=== PATIENT | female | born 1940 | race Caucasian/White ===

== ENCOUNTER 2019-07-16 21:16 | Inpatient (IN) | payer OTHER ==
[~2019-07-16] VITALS: Ht 162.6 cm; Wt 84.1 kg
[2019-07-16 21:20] VITALS: BP 131/74
[2019-07-16 22:00] LABS: HEMATOCRIT 35.8 % (37.0-47.0); HEMOGLOBIN 11.8 gm/dL (12.0-15.0); MCH 27.5 pg (26.0-34.0); MCV 83.4 fL (80.0-100.0); PLATELET COUNT 348 thou/uL (150-400); RBC 4.29 mil/uL (4.20-5.00); RDW 15.8 % (10.5-14.5); WBC 10.6 thou/uL (4.0-11.0)
[2019-07-16 22:06] LABS: ANION GAP 4 mmol/L (7-16); BUN 15 mg/dL (7-18); CALCIUM 8.8 mg/dL (8.5-10.1); CHLORIDE 96 mmol/L (98-107); CO2 31 mmol/L (21-32); CREATININE 0.8 mg/dL (0.6-1.0); GLUCOSE 143 mg/dL (74-106); POTASSIUM 4.1 mmol/L (3.5-5.1); SODIUM 131 mmol/L (136-145)
[2019-07-16 22:15] LABS: TROPONIN-I <0.06 ng/mL (<0.06)
[2019-07-16 22:36] LABS: ABSOLUTE NEUTROPHILS 7.8 thou/uL (1.4-8.2)
[2019-07-16 22:37] LABS: PLATELET ESTIMATE NORMAL
[2019-07-16] MEDS ORDERED: DONEPEZIL HCL 55 M1 PO (23:35)
[2019-07-16] MEDS ORDERED: ALBUTEROL2.5 MG/3 M INH (23:35)
[2019-07-16] MEDS ORDERED: CARBAMAZEPINE100 M3 PO (23:36)
[2019-07-16] MEDS ORDERED: BUPROPION HCL150 M1 PO (23:36)
[2019-07-16] MEDS ORDERED: LEXAPRO20 MG PO (23:37)
[2019-07-16] MEDS ORDERED: FEOSOL325 M1 PO (23:37)
[2019-07-16] MEDS ORDERED: DULCOLAX STOOL100 M1 PO (23:37)
[2019-07-16] MEDS ORDERED: GVOKE SYRI1 MG/0.2 M SUBQ (23:38)
[2019-07-16] MEDS ORDERED: HYDROCODON-ACE1 EAC8 PO (23:39)
[2019-07-16] MEDS ORDERED: IBU600 MG PO (23:40)
[2019-07-16] MEDS ORDERED: LEVEMIR100 UNIT/1 SUBQ ×2 (23:41)
[2019-07-16] MEDS ORDERED: LEVOTHYROXINE88 MCG PO (23:42)
[2019-07-16] MEDS ORDERED: LISINOPRIL2.5 MG PO (23:42)
[2019-07-16] MEDS ORDERED: NOVOLOG100 UNIT/1 SUBQ (23:43)
[2019-07-16] MEDS ORDERED: TRELEGY ELLIPT1 EACH INH (23:43)
[2019-07-16] MEDS ORDERED: PANTOPRAZOLE SO40 M1 PO (23:43)
[2019-07-16] MEDS ORDERED: MEMANTINE HCL5 MG PO (23:44)
[2019-07-16] MEDS ORDERED: ONDANSETRON HCL4 M2 PO (23:45)
[2019-07-16 23:53] VITALS: BP 147/57
[2019-07-17] VITALS (8 sets, daily range): BP systolic 120–147; BP diastolic 57–82
[2019-07-17] MEDS ORDERED: LOPERAMIDE 2 MG2 M1 PO (00:16)
[2019-07-17] MEDS ORDERED: MELATONIN3 M1 PO (00:22)
[2019-07-17] MEDS ORDERED: TUMS X-STR300 MG PO (00:23)
[2019-07-17] MEDS ORDERED: SIMETHICON CHEW80 M1 PO (00:24)
[2019-07-17] MEDS ORDERED: MIRALAX119 GM PO (00:24)
[2019-07-17 05:30] LABS: ALBUMIN 3.6 g/dL (3.4-5.0); DIRECT BILIRUBIN < 0.1 mg/dL (<0.1-0.2); MAGNESIUM 1.6 mg/dL (1.8-2.4); SGOT 29 U/L (15-37); SGPT 19 U/L (30-65); TOTAL BILIRUBIN 0.2 mg/dL (<0.1-1.0); TOTAL PROTEIN 7.8 g/dL (6.4-8.2)
--- NOTE | 2019-07-17 07:30 | NUR ---
PT ARRIVED FROM ER VIA CART WITH O2 AT 6L PER NC. PLACED IN ROOM 357. ADMISSION ASSESSMENTS COMPLETED. PT REPORTEDLY ON 4L PER REPORT. PT SOA WITH ACTIVITY, THUS O2 AT 6L UPON ARRIVAL. PT ABLE TO STAND AND AMBULATE X1 ASSIST TO THE BED. PT REPORTING 1/10 BACK PAIN, DENIED NEED FOR ANY PAIN MEDICATION THROUGHOUT THE NIGHT. SEE CHARTING.
--- NOTE | 2019-07-17 13:38 | EKG ---
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 calvo : 1940 Requested By: Karen Villalobos Order Number: [id number] MD: Regis Bray Measurements Intervals [place] Rate: 101 P: 86 OK: 140 QRS: 75 QRSD: 80 T: 60 QT: 338 QTc: 439 Interpretive Statements Sinus tachycardia Normal tracing Compared to ECG 04/24/2003 13:50:02 No significant change was found Electronically Signed On 07-17-2019 13:37:56 WATER POLLUTION CONTROL INSPECTOR by Regis Bray [email or web address] <ELECTRONICALLY SIGNED> By: Regis Bray MD, [facility] 07/17/19 1337 30 30 Regis Bray MD, [facility] /EPI
--- NOTE | 2019-07-17 15:35 | NUR ---
INITIAL ASSESSMENT: GENOVEVA reviewed chart and spoke with nursing and attending physician. Pt was admitted from [facility] due to COPD exacerbation. Pt is currently on IV abx and on O2. No weekend discharge planned. GENOVEVA met with pt at bedside. Introduced role of SW. Pt is alert/orientated. Pt reports she has lived at [facility] for about a year. Pt uses a walker and was not on O2 prior to admission. Pt confirms plan to return to [facility] when discharged. GENOVEVA provided update to Stella in admissions at [facility]. 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 Pt can come back skilled if needed. Will need insurance authorization for skilled. Clinical info to be faxed to [facility] for review on Saturday. GENOVEVA is following to assist as needed with discharge planning.
--- NOTE | 2019-07-17 17:11 | NUR ---
1630 pt blood sugar 54,pt alert and oriented. dextrose given per protocol 1705 pt blood glucose 161 pt denies any needs pt progressing towards poc
[2019-07-18 03:54] VITALS: BP 169/40
[2019-07-18 05:14] LABS: ABSOLUTE NEUTROPHILS 11.7 thou/uL (1.4-8.2); BASOPHILS 0.3 % (0.0-2.0); HEMATOCRIT 37.7 % (37.0-47.0); HEMOGLOBIN 12.2 gm/dL (12.0-15.0); LYMPHOCYTES 9.1 % (24.0-44.0); MCH 27.5 pg (26.0-34.0); MCHC 32.3 g/dL (28.0-37.0); MCV 85.1 fL (80.0-100.0); PLATELET COUNT 368 thou/uL (150-400); POLYS 82.6 % (36.0-66.0); RBC 4.44 mil/uL (4.20-5.00); RDW 15.9 % (10.5-14.5); WBC 14.1 thou/uL (4.0-11.0)
[2019-07-18 05:31] LABS: ALBUMIN 3.4 g/dL (3.4-5.0); CALCIUM 8.8 mg/dL (8.5-10.1); CREATININE 0.9 mg/dL (0.6-1.0); MAGNESIUM 1.9 mg/dL (1.8-2.4); PHOSPHORUS 3.4 mg/dL (2.5-4.9); POTASSIUM 4.6 mmol/L (3.5-5.1); TOTAL BILIRUBIN 0.2 mg/dL (<0.1-1.0); TOTAL PROTEIN 7.8 g/dL (6.4-8.2)
[2019-07-18 07:10] VITALS: BP 140/57
[2019-07-18 15:14] VITALS: BP 141/60
--- NOTE | 2019-07-18 16:39 | NUR ---
pt is A&OX3, PT is continuing O2 2L/MIN/NC, iv abx, and breathing treatment, pt has SOB with activities , pt gets up to use BSC with assist,pt denies pain at this time, pulmonology has consult.
[2019-07-18 19:13] VITALS: BP 136/59
--- NOTE | 2019-07-19 01:31 | NUR ---
PT TRANSFERED TO MED SURG UNIT. REPORT GIVEN TO CASTILLO DELA CRUZ. PT TRANSFERED VIA BED WITH PORTABLE OXYGEN.
[2019-07-19 01:35] VITALS: BP 151/77
[2019-07-19 04:36] LABS: HEMATOCRIT 34.8 % (37.0-47.0); HEMOGLOBIN 11.5 gm/dL (12.0-15.0); MCH 27.8 pg (26.0-34.0); MCHC 33.1 g/dL (28.0-37.0); RBC 4.14 mil/uL (4.20-5.00); WBC 12.7 thou/uL (4.0-11.0)
[2019-07-19 04:52] LABS: CALCIUM 9.6 mg/dL (8.5-10.1); CREATININE 0.8 mg/dL (0.6-1.0); POTASSIUM 4.7 mmol/L (3.5-5.1)
--- NOTE | 2019-07-19 06:47 | NUR ---
ASSUMED PT CARE A LITTLE AFTER 0145. PT WAS A TRANSFER FROM . PT IS A&OX4. PT IS ON 3L NASAL CANULA. VSS. PT IV IS SALINE LOCKED ON THE LEFT WRIST. PT HAS NO COMPLAINTS OF PAIN. RESTED THROUGHOUT THE NIGHT. WILL CONTINUE TO MONITOR.
[2019-07-19 07:19] VITALS: BP 153/76
[2019-07-19 15:26] VITALS: BP 116/82
--- NOTE | 2019-07-19 19:09 | NUR ---
Assumed patient care at 0715. Vital signs have been stable. O2 continues on 2 Liters per Nasal Cannula. IV continues to be patent in left wrist; it is Saline Locked. Patient's blood sugars have been the followin @ 0751, 159 @ 1217 and 87 @ 1715. Patient still has not been able to produce a sputum culture. No adverse reactions from IV Antibiotics. Report given to on-coming RN.
[2019-07-19 19:19] VITALS: BP 140/70
--- NOTE | 2019-07-20 07:00 | NUR ---
I HAVE REVIEWED THE DOCUMENTATION BY Sonny DAVIS LPN FRO 1845 TO 0658 AND I CONCUR WITH IT.
[2019-07-20 07:10] VITALS: BP 168/63
--- NOTE | 2019-07-20 07:50 | NUR ---
ASSUMED PT CARE AT 1915. PT IS ALERT AND ORIENTED X3 AND SOMETIMES FORGETFUL. IV IS SALINE LOCKED LEFT WRIST. PT DID NOT WANT TO BE WOKEN FOR MEDS. PT TRIPOD SITS ON THE SIDE OF THE BED. PT IS ON 1 LITER NASAL CANULA. PT USES THE BSC. PT HAS NO COMPLAINTS OF PAIN. PT TOOK SCHEDULED MEDICATION WHOLE WITH APPLE JUICE.
--- NOTE | 2019-07-20 15:57 | NUR ---
DISCHARGE PLANNING. PATIENT RESIDES AT [facility]. PLAN IS FOR PATIENT TO RETURN TO [facility] AT DISCHARGE. CLINICAL UPDATES FAXED TO [facility] ADMISSIONS. CALL PLACED TO [facility] TO NOTIFY. FOLLOWING.
--- NOTE | 2019-07-20 16:02 | NUR ---
PT STILL ON 2L O2 AND GETTING IV ABX. 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 CM TO FOLLOW INDICATED WITH DC PLANNING.
--- NOTE | 2019-07-20 16:18 | NUR ---
PT A&OX4. IN INTACT IN L HAND. TRANSFERS WITH ASSIST X1 AND WALKER. NENIES ANY PAIN TODAY. O2 @ 3 L PER NC. PT WILL TRANSFER TO 405 SS.
[2019-07-20 17:05] VITALS: BP 135/56
[2019-07-20 19:38] VITALS: BP 146/69
--- NOTE | 2019-07-20 20:34 | NUR ---
PATIENT TRANSFERRED FROM [facility], REPORT FROM BO Horn/ANDREW. PATIENT ALERT AND ORIENTED X 4. UP WITH ASSIST X 1. DENIES PAIN UPON ARRIVAL TO THE UNIT. WILL CONTINUE TO MONITOR.
--- NOTE | 2019-07-21 04:53 | NUR ---
Assumed pt care at 1900. Pt is A/OX4, VSS. Pt is up with assist of 1 to BSC does have stress incontinence and requested to wear a pull-up in bed. C/o generalized aches/restlessness medicated with Tylenol with relief reported. LS coarse with non productive cough as well as dyspnea on exertion. Fall precautions in place,calls approp. Will continue to monitor pt,resting quietly with Oxygen on @ 2L/NC,call light within reach.
[2019-07-21 05:54] LABS: HEMATOCRIT 35.2 % (37.0-47.0); HEMOGLOBIN 11.5 gm/dL (12.0-15.0); MCH 27.5 pg (26.0-34.0); MCHC 32.7 g/dL (28.0-37.0); MCV 84.1 fL (80.0-100.0); RBC 4.19 mil/uL (4.20-5.00); RDW 15.3 % (10.5-14.5); WBC 9.4 thou/uL (4.0-11.0)
[2019-07-21 07:35] VITALS: BP 151/84
[2019-07-21 13:30] VITALS: BP 132/65
--- NOTE | 2019-07-21 13:30 | NUR ---
GENOVEVA reviewed chart and spoke with nursing and attending physician. Pt was [facility] to [facility] and is progressing towards goals for discharge. Awaiting insurance authorization for pt to return to [facility] for skilled services. Pt will need continued IV abx. GENOVEVA met with pt at bedside to provide update and discuss discharge plan. Pt is aware and in agreement with discharge plan. Clinical and therapy notes faxed to [facility] for review. GENOVEVA is following to assist as needed with discharge planning.
[2019-07-21 19:16] VITALS: BP 122/51
--- NOTE | 2019-07-21 19:52 | NUR ---
ASSUMED CARE OF THE PATIENT AT 0715, PATIENT ALERT AND ORIENTED X 4. PATIENT DENIES PAIN THIS SHIFT. UP TO THE CHAIR ALL DAY. PATIENT C/O NOSE BEING STOPPED UP, BUT REFUSED FLONASE WHEN OFFERED, SHE STATED SHE DOESN'T NEED AT THIS TIME. BLOOD SUGAR MONITORING ORDERED, S/S INSULIN AND SCHEDULED INSULIN GIVEN ORDERED, LAST BS 127, 12 UNITS GIVEN SCHEDULED, NO S/S INSULIN GIVEN. WAITING FOR INSURANCE AUTH. FOR [facility]. WILL CONTINUE TO MONITOR.
--- NOTE | 2019-07-22 03:13 | NUR ---
Assumed pt care at 1900. Pt is A/OX4,VSS. Denies pain on assessment. Up with assist of 1 to BSC.Does have dyspnea on exertion, sats >93% on RA,LS coarse with a non-productive cough. Resting quietly with no distress noted at this time. Fall precautions in place,will continue to monitor pt.
[2019-07-22 07:08] LABS: ADENOVIRUS Negative (Negative); INFLUENZA A Negative (Negative); INFLUENZA B Negative (Negative); METAPNEUMOVIRUS Positive (Negative); PARAINFLUENZA 1 Negative (Negative); PARAINFLUENZA 2 Negative (Negative); PARAINFLUENZA 3 Negative (Negative); RHINOVIRUS Negative (Negative); RSV A Negative (Negative); RSV B Negative (Negative)
[2019-07-22 08:35] VITALS: BP 155/70
--- NOTE | 2019-07-22 10:23 | NUR ---
GENOVEVA reviewed chart and spoke with nursing. GENOVEVA requested therapy see pt early today, in order to send to [facility] for insurance authorization. Awaiting therapy notes at this time. GENOVEVA is following to assist as needed with discharge planning.
[2019-07-22] MEDS ORDERED: MUCINEX600 MG PO (13:32)
[2019-07-22] MEDS ORDERED: IPRAT-ALBUT 0.5-3 ML INH (13:32)
[2019-07-22] MEDS ORDERED: PREDNISONE 10 M10 M1 PO (13:32)
[2019-07-22] MEDS ORDERED: CEFUROXIME250 MG PO (13:32)
[2019-07-22] MEDS ORDERED: NOVOLOG100 UNIT/1 SUBQ (13:32)
--- NOTE | 2019-07-22 14:43 | NUR ---
ASSUMED CARE OF PT AT 0700. PT IS AOX4, VSS, NO C/O PAIN. PT O2 SATS 93% ON RA WHILE RESTING OR SITTING. PT WORKING WELL WITH PT AND OT. PT HAS L WRIST IV- SL. PT UP WITH STANDBY ASSIST AND WILL CALL APPROPRIATELY. CALL LIGHT/PERSONAL ITEMS IN REACH. WILL CONTINUE TO MONITOR PT.
[2019-07-22 15:45] VITALS: BP 142/70
--- NOTE | 2019-07-22 16:39 | NUR ---
PT DISCHARGED BACK TO [facility]. NURSE CALLED REPORT TO ANJU. PT AOX3, VSS, NO C/O PAIN. BS 128 BEFORE LEAVING. [facility] TRANSPORTED PT BACK TO FACILITY.
== END 2019-07-22 16:00 | DRG 871 ==
LOC: ER 21:16 → 3W 23:18 → 4N 23:18 → EROBS 23:18 → 3W 07-17 00:15 → 4W 07-19 01:34 → 4N 07-20 17:35
PROVIDERS: Emergency Medicine; Internal Medicine; Internal Medicine Pulmonary Disease; Nurse Practitioner Acute Care; ADMIT Internal Medicine
DX: A41.9 Sepsis, unspecified organism (principal); J18.9 Pneumonia, unspecified organism; J96.21 Acute and chronic respiratory failure with hypoxia; J44.1 Chronic obstructive pulmonary disease with (acute) exacerbation; J44.0 Chronic obstructive pulmonary disease with (acute) lower respiratory infection; E11.9 Type 2 diabetes mellitus without complications; M41.9 Scoliosis, unspecified; K21.9 Gastro-esophageal reflux disease without esophagitis; E03.9 Hypothyroidism, unspecified; M54.5 Low back pain; D72.825 Bandemia; I10 Essential (primary) hypertension; F32.9 Major depressive disorder, single episode, unspecified; E78.5 Hyperlipidemia, unspecified; G89.29 Other chronic pain; Z87.891 Personal history of nicotine dependence; Z90.710 Acquired absence of both cervix and uterus; Z90.89 Acquired absence of other organs; Z79.4 Long term (current) use of insulin; Z79.891 Long term (current) use of opiate analgesic; Z79.899 Other long term (current) drug therapy
CPT/HCPCS: 10047; 10790; 10879

== ENCOUNTER 2020-01-11 11:51 | Inpatient (IN) | payer OTHER ==
[~2020-01-11] VITALS: Ht 160 cm; Wt 88.6 kg
--- NOTE | ~2020-01-11 | EMS ---
[facility] [address] [place] [address] EMS Patient Care Report Name: ABEL RANGEL Room #: 354-P ADM IN M.R.#: [id number] Admission: 01/11/20 Attend Phys: Nehemiah Melgar Discharge: Date of : 42 Report #: [id number] THIS REPORT FOR: //name// Report Transmitted: 01/12/2020 01:08 EMS Care Summary [facility] Incident [id number] @ 01/11/2020 11:08 Incident Location [address] [place] [address] Patient ABEL RANGEL Female, 79 Years 1940 Patient Address [facility] [address] [place] [address] Patient History Chronic Obstructive Pulmonary Disease (COPD), Patient Allergies No known allergies, Patient Medications Other, Chief Complaint Difficulty Breathing Disposition Transported No Lights/Raymond Dispatch Reason Breathing Problem Transported To [facility] Narrative This patient showed up today from her [facility] to her pulomologist appointment. They called us when they saw her in the waiting room because she had increased work of breathing and now was requiring oxygen to maintain her [facility] [address] [place] [address] EMS Patient Care Report Name: ABEL RANGEL Room #: 354-P ADM IN M.R.#: [id number] Admission: 01/11/20 Attend Phys: Nehemiah Melgar Discharge: Date of : 42 Report #: [id number] saturation. The patient only complains of shortness of air. She states that there is an outbreak of COVID at her nuring home. She has a temp of 99.6 when she checked into the office today. The patients doctor was concerned about possible infection with COVID 19, so she called for ambulance transport to the emergency room. Patient denies chest pain, cough, N/V, headache or loose stools. Patient is taken to room 22 at [facility] and report is given to nurse at bedside Initial Vitals @11:25P: 84,R: 24,BP: 180/83,Pain: 0/10,GCS: 15,Glucose: 124,SpO2: 98,Revised Trauma: 12, Assessments @11:40MENTAL:No Abnormalities,SKIN:Diaphoresis,Pale,HEENT:Head/Face: No Abnormalities,Neck/Airway: No Abnormalities,LUNG SOUNDS:General: No Abnormalities,ABDOMEN:General: No Abnormalities,PELVIS//GI:EXTREMITIES:Left Arm: No Abnormalities,Right Arm: No Abnormalities,Left Leg: No Abnormalities,Right Leg: No Abnormalities,PULSE:NEURO:No Abnormalities, Impression Shortness of breath Timeline 11:07,Call Received 11:07,Psap Call 11:08,Dispatched 11:11,En Route 11:17,On Scene 11:21,At Patient 11:25,BP: 180/83 M,PULSE: 84,RR: 24 R,SPO2: 98 Ox,ETCO2: ,B,PAIN: 0,GCS: 15, 11:37,Depart Scene 11:45,At Destination 12:15,Call Closed Disclaimer v1.1 Copyright 2020 [employer] This EMS Care Summary contains data elements from the applicable legal record (which may be displayed differently). It is designed to provide pertinent information for the following purposes: continuity of care, clinical quality, and state data reporting. The complete legal record is available to ED staff and administrators of the receiving hospital in [employer] Patient Tracker. All data [facility] [address] [place] [address] EMS Patient Care Report Name: ABEL RANGEL Room #: 354-P ADM IN .R.#: [id number] Admission: 01/11/20 Attend Phys: Nehemiah Melgar Discharge: Date of : 42 Report #: [id number] is provided "as is."
[~2020-01-11 11:51] MED LIST: ALBUTEROL2.5 MG/3 M INH; BUPROPION HCL150 M1 PO; CARBAMAZEPINE100 M3 PO; CEFUROXIME250 MG PO; DONEPEZIL HCL 55 M1 PO; DULCOLAX STOOL100 M1 PO; FEOSOL325 M1 PO; GVOKE SYRI1 MG/0.2 M SUBQ; HYDROCODON-ACE1 EAC8 PO; IBU600 MG PO; IPRAT-ALBUT 0.5-3 ML INH; LEVEMIR100 UNIT/1 SUBQ; LEVOTHYROXINE88 MCG PO; LEXAPRO20 MG PO; LISINOPRIL2.5 MG PO; LOPERAMIDE 2 MG2 M1 PO; MELATONIN3 M1 PO; MEMANTINE HCL5 MG PO; MIRALAX119 GM PO; MUCINEX600 MG PO; NOVOLOG100 UNIT/1 SUBQ; ONDANSETRON HCL4 M2 PO; PANTOPRAZOLE SO40 M1 PO; PREDNISONE 10 M10 M1 PO; SIMETHICON CHEW80 M1 PO; TRELEGY ELLIPT1 EACH INH; TUMS X-STR300 MG PO
[2020-01-11 11:52] VITALS: BP 150/71
[2020-01-11 12:37] LABS: ABSOLUTE NEUTROPHILS 7.8 thou/uL (1.4-8.2); EOSINOPHILS 1.5 % (0.0-3.0); LYMPHOCYTES 9.4 % (24.0-44.0); MCH 28.6 pg (26.0-34.0); MCHC 33.2 g/dL (28.0-37.0); MONOCYTES 7.8 % (1.0-8.0); PLATELET COUNT 423 thou/uL (150-400); POLYS 80.3 % (36.0-66.0); RBC 3.84 mil/uL (4.20-5.00); RDW 14.2 % (10.5-14.5); WBC 9.8 thou/uL (4.0-11.0)
[2020-01-11 12:43] LABS: ANION GAP 4 mmol/L (7-16); BUN 12 mg/dL (7-18); CALCIUM 8.8 mg/dL (8.5-10.1); CHLORIDE 100 mmol/L (98-107); CO2 33 mmol/L (21-32); CREATININE 0.9 mg/dL (0.6-1.0); GLUCOSE 232 mg/dL (74-106); POTASSIUM 4.5 mmol/L (3.5-5.1); SODIUM 137 mmol/L (136-145)
[2020-01-11 12:45] LABS: BE(vivo) 2.2 mmol/L (-2 to +3); HCO3 26.9 mmol/L (22.0-26.0); PCO2 42.4 mmHg (35.0-45.0); PO2 147.8 mmHg (80.0-100.0); sO2 98.9 % (92.0-98.0)
[2020-01-11 12:53] LABS: ALBUMIN 3.5 g/dL (3.4-5.0); SGOT 20 U/L (15-37); SGPT 18 U/L (30-65); TOTAL BILIRUBIN 0.2 mg/dL (0.2-1.0); TROPONIN-I <0.06 ng/mL (<0.06)
[2020-01-11] MEDS ORDERED: SINGULAIR 4 MG C4 M1 PO (13:30)
[2020-01-11 15:36] VITALS: BP 150/68
[2020-01-11 15:57] VITALS: BP 137/56
--- NOTE | 2020-01-11 19:43 | NUR ---
ASSUMED CARE APPROX 1630. PT ADMITTED FROM ER TO THIS UNIT. PT ALERT AND ORIENTED X4. ASSESSMENT CHARTED AND VSS. PT ON 2LNC W/ NO SIGNS OF RESPIRATORY DISTRESS. PT DENIES ACUTE PAIN. ADMISSION COMPLETED. SR ON TELE MONITOR. WILL CONTINUE TO MONITOR.
[2020-01-11 20:40] VITALS: BP 141/53
[2020-01-11 23:59] VITALS: BP 127/62
--- NOTE | 2020-01-12 01:45 | NUR ---
RN ASSUMED THE CARE FOR THIS PT FOR THE FIRST TIME TODAY AT 1900. UPON INITIAL ASSESSMENT PT WAS TRYING TO GET OUT OF THE BED USING THE WALKER TO GO TO THE BATHROOM. NOT KNOWING PT'S ABILITY TO WALK, RN OFFERED THE BEDSIDE COMMODE AND PT WAS ABLE TO UTILIZE THE BSC WELL WITH STABILITY. PT STATED THAT HER PHONE AND TABLET WERE MISSING FROM THE WALKER. PT PRESENTED WITH MILD ANXIETY AT THE BEGINNING OF THE SHIFT BUT IT SUBSIDED DURING THE NIGHT. PT'S LUNGS WERE WHEEZY INITIALLY BUT PT WAS ABLE TO TOLERATE ACTIVITIES WELL. PT STATED THAT NEUROPATHY AT BOTH LOWER EXTREMETIES WERE BASELINE AND RECEIVING INSULIN REDUCED THE NUMBNESS. SHE THEN FELL DEEPLY ASLEEP AFTER STATING THAT. VITAL SIGNS ARE STABLE, TMAX OF 99.3. NO SPECIFIC CONCERNS AT THIS TIME. WILL CONTINUE TO MONITOR
[2020-01-12 04:44] VITALS: BP 124/49
[2020-01-12 07:35] VITALS: BP 114/68
--- NOTE | 2020-01-12 08:06 | EKG ---
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: [facility] : 1940 Requested By: Tanja Beatty Order Number: [id number] MD: Regis Bray Measurements Intervals [place] Rate: 77 P: 78 MD: 151 QRS: 64 QRSD: 83 T: 60 QT: 371 QTc: 420 Interpretive Statements Sinus rhythm Normal tracing Compared to ECG 07/16/2019 21:31:47 Sinus tachycardia no longer present Electronically Signed On 01-12-2020 8:05:36 CDT by Regis Bray [email or web address] <ELECTRONICALLY SIGNED> By: Regis Bray MD, FAC 01/12/20 0805 1312 1312 Regis Bray MD, [facility] /EPI
--- NOTE | 2020-01-12 11:14 | NUR ---
INITIAL ASSESSMENT: Received consult regarding discharge plan. GENOVEVA reviewed chart and spoke with nursing and attending physician. Pt was admitted from [facility] due to exacerbation for COPD. Pt is currently in Enhanced Isolation to r/o COVID-19. First test is negative. GENOVEVA spoke with pt viae phone. Introduced role of SW. Pt is alert/orientated x 4. Pt states she normally uses a walker at the facility. Pt has been on O2 for the past 6 months. Pt states that she is agreeable with returning to [facility] at time of discharge. [facility] has been working on moving pt to [facility]. Pt states that she is aware that many LTC/SNFs are not accepting new patients at this time due to COVID-19. SW faxed clinical info to [facility] for review and notified [facility] admissions dean. Plan is for pt to return to [facility] when medically stable. Discharge anticipated for tomorrow. GENOVEVA is following to assist as needed with discharge planning.
[2020-01-12 16:05] VITALS: BP 140/54
--- NOTE | 2020-01-12 18:17 | NUR ---
ASSUMED PATIENT CARE AT 0700. A/O X4. AMBULATED IN ROOM WITH [facility]. 2ND COVID NEGATIVE. WILL TRANSFER TO M/S. PROGRESSING TOWARDS POC GOALS.
[2020-01-12 19:41] VITALS: BP 101/72
[2020-01-12 22:37] VITALS: BP 148/64
--- NOTE | 2020-01-12 22:46 | NUR ---
ASSUMED CARE OF PT FROM 3W AT 2220HRS. PT AOX4 AND LETS NEEDS BE KNOWN. FALL PRECAUTION IN PLACE. 4L O2 VIA NC CONTINUED. ASSESSMENT CHARTED. VSS AND NO S/S OF ACUTE DISTRESS. WILL CONTINUE TO MONITOR.
[2020-01-13 07:15] VITALS: BP 156/44
[2020-01-13 08:37] VITALS: BP 156/44
[2020-01-13] MEDS ORDERED: PREDNISONE 5 MG5 M1 PO (09:22)
--- NOTE | 2020-01-13 14:34 | NUR ---
CARE TEAM INDICATED THAT PT IS MEDICALLY STABLE TO DC BACK TO LTC AT [facility] THIS DAY. CHART COPY MADE. CM FAXED ORDERS. NOTIFIED [facility] IN ADMISSIONS. SHE INDICATED THAT THEY HAVE PT'S PHONE AND TABLET WHICH SHE WAS WORRIED ABOUT. WHEELCHAIR VAN TRANSPORT ARRANGED FOR 1300. KATERIN PROVIDED NURSE WITH NUMBER FOR REPORT. CM NOTIFIED PT SHE IS AWARE AND AGREEABLE. CM CALLED AND LEFT NOTIFING PT'S CONTACT JAY OF DC. NO OTHER INTERVENTION INDICATED. CASE CLOSED.
--- NOTE | 2020-01-13 14:39 | NUR ---
Received awake on bed. Due medications given as prescribed, able to swallow meds w/o difficulty. On O2 at 3-4 lpm via nasal cannula, pt's baseline at facility. A+O2-3, forgetful. On blood sugar monitoring, taken and recorded accordingly, with sliding scale insulin ordered, given as prescribed. Continent of bowel and bladder, able to go to the toilet with standby assist and oxygen extension; with episodes of urgency and incontinence, with briefs on. With SL at L AC- on IV steroids, given as prescribed. Assisted in ADLs. Falls bundle in place. Possible discharge today. Pt screamed and got upset that her phone and tablet is missing, checked her room and personal belongings- none; admission history checked and none noted; called pt's facility- [facility]- Admission's nurse Stella said they have it there- pt updated. Pt seen and examined by Dr Melgar- discharge orders made; Discharge instructions, follow up schedule and medications to be taken instructed to patient and expressed understanding; discharge forms signed. CM informed re: discharge orders- transport set up at 1300. IV discontinued. Report given to ANDREW Lew. Pt fetched by transport staff at 1300, brought out of the unit with her personal belongings, walker with oxygen; chart copy given to transport staff as well. Pt left unit at 1315.
== END 2020-01-13 15:31 | DRG 189 ==
LOC: ER 11:51 → 3W 14:59 → EROBS 14:59 → 3W 15:57 → 4W 01-12 22:20
PROVIDERS: Physician Assistant; ADMIT Hospitalist; ATTEND Hospitalist
DX: J96.01 Acute respiratory failure with hypoxia (principal); J44.1 Chronic obstructive pulmonary disease with (acute) exacerbation; E11.9 Type 2 diabetes mellitus without complications; M41.9 Scoliosis, unspecified; K21.9 Gastro-esophageal reflux disease without esophagitis; E03.9 Hypothyroidism, unspecified; I10 Essential (primary) hypertension; F31.9 Bipolar disorder, unspecified; G56.00 Carpal tunnel syndrome, unspecified upper limb; Z20.828 Contact with and (suspected) exposure to other viral communicable diseases; E78.5 Hyperlipidemia, unspecified; G89.29 Other chronic pain; M54.9 Dorsalgia, unspecified; Z90.710 Acquired absence of both cervix and uterus; Z79.899 Other long term (current) drug therapy; Z79.4 Long term (current) use of insulin; Z79.51 Long term (current) use of inhaled steroids; Z88.8 Allergy status to other drugs, medicaments and biological substances; Z87.891 Personal history of nicotine dependence
CPT/HCPCS: 10040; 10080

== ENCOUNTER 2020-02-25 15:13 | Inpatient (IN) | payer OTHER ==
[~2020-02-25] VITALS: Ht 160 cm; Wt 87.1 kg
--- NOTE | ~2020-02-25 | P ---
[facility] [place] [address] PROCEDURE REPORT Name: ABEL RANGEL Room #: 364-P ADM IN M.R.#: [id number] Admission: 02/25/20 Attend Phys: Alexia Seay MD Discharge: Date of : 42 Report #: [id number] THIS REPORT FOR: cc: Abel Lindsey,Kalen Cornell MD ~ CC: Kalen Seay MD DATE OF SERVICE: 02/26/2020 PROCEDURE PERFORMED: Upper endoscopy with bleeding control. HISTORY OF PRESENT ILLNESS: The patient is a 79-year-old female with known history of COVID-19 being positive within the last 2 weeks. She has been having increasing shortness of breath. Admit hemoglobin was 6.2. She received 1 unit of packed cells. She has been having dark melanotic type stools. She is not on any NSAIDs. She underwent a nuclear medicine bleeding scan that showed activity concentrated in the midline appears to represent the distal stomach or proximal duodenum. Plan is for upper endoscopy. DESCRIPTION OF PROCEDURE: The risks and benefits of the procedure were explained to the patient, those risks including but not limited to bleeding, perforation, the risk of sedation. She understood these risks and gave informed consent. Sedation was given using propofol per anesthesia. Next, using a standard Olympus upper endoscope, the scope was placed in the patient's mouth and advanced under direct vision through the esophagus, stomach and into the third portion of the duodenum. The esophagus was normal. No evidence of esophagitis at the GE junction. Overall, the gastric mucosa was normal. The pylorus was normal and patent. The duodenal bulb was normal. As the scope was advanced into the second and third portion of the duodenum, bright red blood was noted. Multiple washings and aspirations were performed. I was able to identify the bleeding source in the third portion of the duodenum. Initially thought this was maybe an AVM; however, I proceeded with cauterization and it continued to bleed somewhat in a pulsatile manner suggesting a possible Dieulafoy lesion. There was no ulceration around the area. I injected 2 mL of epinephrine in the area. It continued to cauterize, continued to have a small amount of oozing at this point; therefore, a single endoclip was placed. No further bleeding was noted at this point. No other bleeding areas were seen. At this point, the scope was then withdrawn and the procedure terminated. The patient tolerated the procedure well. IMPRESSION: Actively bleeding lesion in the third portion of the duodenum. Suspect this may be Dieulafoy lesion as there was no ulceration; although, AVM [address] [address] PROCEDURE REPORT Name: ABEL RANGEL Room #: 364-P ADM IN M.R.#: [id number] Admission: 02/25/20 Attend Phys: Alexia Seay MD Discharge: Date of : 42 Report #: [id number] is still possible, tended to have more of an arterial blood to bleeding, status post cautery, epinephrine and endoclip placement. No further bleeding noted at this time. RECOMMENDATIONS: Observe the patient post-procedure. Continue PPI therapy and monitoring hemoglobin closely. We will start clear liquids as tolerated. Thank you for allowing me to participate in her care. By: 1512 1544 Kalen Khalil MD /nt
[~2020-02-25 15:13] MED LIST changes: +PREDNISONE 5 MG5 M1 PO; +SINGULAIR 4 MG C4 M1 PO
[2020-02-25 15:17] VITALS: BP 150/56
[2020-02-25 15:59] LABS: ABSOLUTE NEUTROPHILS 4.9 thou/uL (1.4-8.2); WBC 6.3 thou/uL (4.0-11.0)
[2020-02-25 16:01] LABS: BASOPHILS 0.3 % (0.0-2.0); MCH 27.4 pg (26.0-34.0); MCHC 33.5 g/dL (28.0-37.0); MCV 81.8 fL (80.0-100.0); MONOCYTES 9.8 % (1.0-8.0); PLATELET COUNT 552 thou/uL (150-400); POLYS 77.9 % (36.0-66.0); RBC 2.28 mil/uL (4.20-5.00); RDW 14.1 % (10.5-14.5)
[2020-02-25 16:11] LABS: CALCIUM 8.4 mg/dL (8.5-10.1); MAGNESIUM 1.6 mg/dL (1.8-2.4); POTASSIUM 4.7 mmol/L (3.5-5.1)
[2020-02-25 16:12] LABS: HEMOGLOBIN 6.2 gm/dL (12.0-15.0)
[2020-02-25 16:13] LABS: HEMATOCRIT 18.6 % (37.0-47.0)
--- NOTE | 2020-02-25 21:00 | NUR ---
CRITICAL LAB, HGB - 6.4 HEMATOCRIT -19.1
[2020-02-25 21:01] LABS: HEMATOCRIT 19.1 % (37.0-47.0); HEMOGLOBIN 6.4 gm/dL (12.0-15.0)
[2020-02-25 21:45] VITALS: BP 122/58
[2020-02-25 21:51] VITALS: BP 120/74
[2020-02-25 22:28] VITALS: BP 148/53
[2020-02-26] VITALS (7 sets, daily range): BP systolic 114–155; BP diastolic 37–98
--- NOTE | 2020-02-26 01:37 | NUR ---
ADMIT FROM ED. PT FROM [facility] USING ACCESSORY MUSCLES LOW AND TESTED POSITIVE FOR COVID ON SATURDAY. PT IN ED NOTED TO HAVE LOW HGB AND POSITIVE OCCULT STOOL. PT AOX3 FORGETFUL CHEERFUL SMILING, SOA WITH MOVEMENT AND TALKING. O2 PER NC. LUNGS CRACKLES, COUGH LOOSE. PALE SKIN TONE. 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 PT WENT TO RADIOLOGY FOR NUC SCAN, RESULTS WERE NOT CONCLUSIVE REPORTED THAT PT COULD NOT LAY STILL. PT REPORTS CHRONIC BACK PAIN FROM SCOLIOSIS THAT MAKES IT SO SHE NEEDS TO LAY ON HER SIDE. PT VERBALIZED UNDERSTANDING OF NPO STATUS. BED ALARM ON. PT REQUESTED SCDS BE REMOVED AFTER SHE HAD WORN THEM FOR A FEW HOURS. PROTONIX DRIP INTACT.
--- NOTE | 2020-02-26 08:13 | EKG ---
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: Daniel : 1940 Requested By: Puma Negron Order Number: [id number] MD: Rk Cassidy Measurements Intervals [place] Rate: 73 P: DE: QRS: 61 QRSD: 76 T: 74 QT: 424 QTc: 468 Interpretive Statements Normal sins rhythm with artifact Ventricular premature complex Compared to ECG 01/11/2020 13:12:49 Ventricular premature complex(es) now present Sinus rhythm no longer present Electronically Signed On 02-26-2020 8:13:09 CDT by Rk Cassidy [email or web address] <ELECTRONICALLY SIGNED> By: Rk Cassidy MD 02/26/20812 12 12 Rk Cassidy MD /EPI
[2020-02-26 11:32] LABS: HEMATOCRIT 26.6 % (37.0-47.0)
[2020-02-26 11:34] LABS: HEMOGLOBIN 9.1 gm/dL (12.0-15.0)
[2020-02-26 11:47] LABS: PROTIME 10.5 Seconds (9.3-11.4)
[2020-02-26 12:02] LABS: APTT 22.4 Seconds (24.5-32.8); FIBRINOGEN 396.6 mg/dL (210-360)
--- NOTE | 2020-02-26 15:17 | NUR ---
INITIAL ASSESSMENT: Received consult. Pt was admitted from [facility] due to GI bleed/anemia/COVID-19. Pt is in Enhanced Isolation. Pt has tested positive at [facility]. Pt had COVID test yesterday. Results are pending. Pt has received 2 units PRBC today and will need EGD/colonoscopy per GI. SW has attempted to reach pt via phone multiple times today. Per chart, pt is alert/orientated x 4. Pt normally uses a walker at the facility has used O2 at the facility for the past several months. No weekend discharge planned. GENOVEVA provided update to Stella at [facility]. SW will follow up with pt on Saturday to complete assessment and discuss discharge plan.
[2020-02-26 15:53] LABS: HEMATOCRIT 26.8 % (37.0-47.0); MCH 28.4 pg (26.0-34.0); MCHC 33.5 g/dL (28.0-37.0); MCV 84.9 fL (80.0-100.0); RBC 3.16 mil/uL (4.20-5.00); RDW 14.2 % (10.5-14.5); WBC 9.9 thou/uL (4.0-11.0)
[2020-02-26 16:19] LABS: CALCIUM 8.1 mg/dL (8.5-10.1); POTASSIUM 4.8 mmol/L (3.5-5.1)
--- NOTE | 2020-02-26 18:38 | NUR ---
PATIENT HAS BEEN QUITE PLEASANT THROUGH THE DAY. SHE IS ALERT ORIENTED X4. AMBULATES WITH STAND BY ASSIST. HAD AN EGD DONE AND BLEEDING WAS NOTED. COMPLETED TWO UNITS OF BLOOD THIS AM.
[2020-02-26 20:59] LABS: HEMATOCRIT 25.1 % (37.0-47.0); HEMOGLOBIN 9.2 gm/dL (12.0-15.0)
--- NOTE | 2020-02-27 02:54 | NUR ---
ASSUMED CARE OF PT AT 1900HRS. PT AOX4 WITH SOME FORGETFULNESS. FALL PRECAUTION IN PLACE. ASSESSMENT CHARTED. PT IS RUNNING SINUS ARRHYTHMIA ON TELE. PT HAD A BM THIS SHIFT. PT WAS ABLE TO TAKE MEDS WHOLE. PT IS TOLERATING CLEAR LIQUID DIET. PT DENIED PAIN, NAUSEA OR SOA. PT WAS ABLE TO GET COMFORTABLE AND SLEEP PART OF THE SHIFT. VSS AND NO S/S OF ACUTE DISTRESS. WILL CONTINUE TO MONITOR.
[2020-02-27 03:23] VITALS: BP 120/50
[2020-02-27 06:18] LABS: ABSOLUTE NEUTROPHILS 6.2 thou/uL (1.4-8.2); BASOPHILS 0.5 % (0.0-2.0); HEMATOCRIT 25.7 % (37.0-47.0); HEMOGLOBIN 9.2 gm/dL (12.0-15.0); LYMPHOCYTES 8.2 % (24.0-44.0); MCH 29.8 pg (26.0-34.0); MCHC 35.6 g/dL (28.0-37.0); MCV 83.9 fL (80.0-100.0); MONOCYTES 7.8 % (1.0-8.0); PLATELET COUNT 590 thou/uL (150-400); POLYS 83.5 % (36.0-66.0); RBC 3.07 mil/uL (4.20-5.00); RDW 14.4 % (10.5-14.5); WBC 7.4 thou/uL (4.0-11.0)
[2020-02-27 06:44] LABS: ALBUMIN 2.8 g/dL (3.4-5.0); CALCIUM 8.2 mg/dL (8.5-10.1); CREATININE 0.9 mg/dL (0.6-1.0); MAGNESIUM 1.9 mg/dL (1.8-2.4); PHOSPHORUS 3.6 mg/dL (2.5-4.9); POTASSIUM 4.6 mmol/L (3.5-5.1); TOTAL BILIRUBIN 0.3 mg/dL (0.2-1.0); TOTAL PROTEIN 6.5 g/dL (6.4-8.2)
[2020-02-27 08:36] VITALS: BP 145/65
--- NOTE | 2020-02-27 15:45 | NUR ---
PATIENT DISCHARGED AT SI TIME TO SNF. SHE IS ALERT ORIENTED X4. PLEASANT. VSS AT TIME OF DISCHARGE. PLEASANT WITH CARE. REPORT CALLED TO SNF.
== END 2020-02-27 15:27 | DRG 393 ==
LOC: ER 15:13 → 3W 17:25 → EROBS 17:25 → 3W 22:10
PROVIDERS: Emergency Medicine; ADMIT Internal Medicine; ATTEND Internal Medicine
PROC: 0W3P8ZZ Control Bleeding in Gastrointestinal Tract, Via Natural or Artificial Opening Endoscopic (ICD-10-PCS; principal; 2020-02-26)
PROC: 30233N1 Transfusion of Nonautologous Red Blood Cells into Peripheral Vein, Percutaneous Approach (ICD-10-PCS; principal; 2020-02-26)
PROC: 3E0G8GC Introduction of Other Therapeutic Substance into Upper GI, Via Natural or Artificial Opening Endoscopic (ICD-10-PCS; principal; 2020-02-26)
DX: K63.81 Dieulafoy lesion of intestine (principal); U07.1 COVID-19; J96.21 Acute and chronic respiratory failure with hypoxia; J44.1 Chronic obstructive pulmonary disease with (acute) exacerbation; K92.2 Gastrointestinal hemorrhage, unspecified; M41.9 Scoliosis, unspecified; K21.9 Gastro-esophageal reflux disease without esophagitis; E03.9 Hypothyroidism, unspecified; F31.9 Bipolar disorder, unspecified; E78.5 Hyperlipidemia, unspecified; M54.89 Other dorsalgia; G89.29 Other chronic pain; E11.22 Type 2 diabetes mellitus with diabetic chronic kidney disease; I12.9 Hypertensive chronic kidney disease with stage 1 through stage 4 chronic kidney disease, or unspecified chronic kidney disease; D64.9 Anemia, unspecified; Z90.89 Acquired absence of other organs; Z90.710 Acquired absence of both cervix and uterus; Z90.49 Acquired absence of other specified parts of digestive tract; Z79.899 Other long term (current) drug therapy; Z79.4 Long term (current) use of insulin; Z88.8 Allergy status to other drugs, medicaments and biological substances; Z87.891 Personal history of nicotine dependence; Z99.81 Dependence on supplemental oxygen
CPT/HCPCS: 10879; 62110; 62900

== ENCOUNTER 2020-03-04 11:37 | Emergency (ER) | payer OTHER ==
[~2020-03-04] VITALS: Ht 160 cm; Wt 81.7 kg
[2020-03-04] MEDS ORDERED: VITAMIN C500 M1 PO (13:02)
[2020-03-04 13:52] LABS: HEMATOCRIT 31.1 % (37.0-47.0); HEMOGLOBIN 10.2 gm/dL (12.0-15.0); MCH 27.6 pg (26.0-34.0); MCHC 32.7 g/dL (28.0-37.0); MCV 84.5 fL (80.0-100.0); PLATELET COUNT 663 thou/uL (150-400); RBC 3.68 mil/uL (4.20-5.00); RDW 14.2 % (10.5-14.5); WBC 8.4 thou/uL (4.0-11.0)
[2020-03-04 14:02] LABS: ANION GAP 2 mmol/L (7-16); BUN 14 mg/dL (7-18); CALCIUM 8.9 mg/dL (8.5-10.1); CHLORIDE 104 mmol/L (98-107); CO2 35 mmol/L (21-32); CREATININE 0.7 mg/dL (0.6-1.0); GLUCOSE 125 mg/dL (74-106); POTASSIUM 4.1 mmol/L (3.5-5.1); SODIUM 141 mmol/L (136-145)
[2020-03-04 14:12] LABS: ALBUMIN 3.1 g/dL (3.4-5.0); SGOT 17 U/L (15-37); SGPT 27 U/L (30-65); TOTAL BILIRUBIN 0.3 mg/dL (0.2-1.0); TOTAL PROTEIN 6.9 g/dL (6.4-8.2); TROPONIN-I <0.06 ng/mL (<0.06)
[2020-03-04 14:16] LABS: ABSOLUTE NEUTROPHILS 5.3 thou/uL (1.4-8.2)
[2020-03-04 14:17] LABS: PLATELET ESTIMATE INCREASED
[2020-03-04] MEDS ORDERED: ACCUNEB SO1.25 MG/1 INH (15:41)
[2020-03-04] MEDS ORDERED: LEVAQUIN 750 M750 MG PO (15:41)
[2020-03-04] MEDS ORDERED: PREDNISONE 20 M20 MG PO (15:41)
[2020-03-04] MEDS ORDERED: TESSALON PERLE100 MG PO (15:41)
[2020-03-04 16:00] VITALS: BP 146/60
--- NOTE | 2020-03-07 08:36 | EKG ---
[facility] [place] [address] ELECTROCARDIOGRAM REPORT Name: ABEL RANGEL Room #: DEP [facility].#: [id number] Admission: 03/04/20 Attend Phys: Discharge: 03/04/20 Date of : 44 Report #: [id number] THIS REPORT FOR: cc: Rosalia,Abel Greene,Abel Macias,Regis Willson MD [facility] ~ THIS REPORT FOR: //name// [facility] ED Test Date: 2020-03-04 Test Time: 13:36:00 Pat Name: ABEL RANGEL Department: Room: Gender: F Cdl Instructor: [facility] : 1940 Requested By: Alicia Zee Order Number: [id number] MD: Regis Bray Measurements Intervals [place] Rate: 73 P: 60 NM: 139 QRS: 61 QRSD: 88 T: 64 QT: 387 QTc: 427 Interpretive Statements Sinus rhythm Normal tracing Compared to ECG 02/25/2020 16:13:21 No significant change was found Electronically Signed On 03-07-2020 8:26:16 CDT by Regis Bray [email or web address] <ELECTRONICALLY SIGNED> By: Regis Bray MD, FACC 03/07/20825 1336 35 Regis Bray MD, [facility] /EPI
== END 2020-03-04 17:00 | disposition home or self-care (01) ==
LOC: ER 11:37
PROVIDERS: Physician Assistant
DX: U07.1 COVID-19 (principal); J18.9 Pneumonia, unspecified organism; J44.1 Chronic obstructive pulmonary disease with (acute) exacerbation; E11.9 Type 2 diabetes mellitus without complications; K21.9 Gastro-esophageal reflux disease without esophagitis; I10 Essential (primary) hypertension; E03.9 Hypothyroidism, unspecified; G89.29 Other chronic pain; Z79.4 Long term (current) use of insulin; Z79.899 Other long term (current) drug therapy; Z87.891 Personal history of nicotine dependence; Z88.1 Allergy status to other antibiotic agents; Z88.8 Allergy status to other drugs, medicaments and biological substances; Z90.49 Acquired absence of other specified parts of digestive tract; Z90.710 Acquired absence of both cervix and uterus

== ENCOUNTER 2020-08-09 16:29 | Inpatient (IN) | payer OTHER ==
[~2020-08-09] VITALS: Ht 162.6 cm; Wt 79.4 kg
[~2020-08-09 16:29] MED LIST changes: +ACCUNEB SO1.25 MG/1 INH; +LEVAQUIN 750 M750 MG PO; +PREDNISONE 20 M20 MG PO; +TESSALON PERLE100 MG PO; +VITAMIN C500 M1 PO
[2020-08-09 16:31] VITALS: BP 167/83
[2020-08-09 17:09] LABS: RDW 17.9 % (10.5-14.5)
[2020-08-09 17:10] LABS: HEMATOCRIT 21.1 % (37.0-47.0); MCH 20.5 pg (26.0-34.0); MCHC 29.2 g/dL (28.0-37.0); PLATELET COUNT 657 thou/uL (150-400); RBC 3.01 mil/uL (4.20-5.00); WBC 10.8 thou/uL (4.0-11.0)
[2020-08-09 17:13] LABS: HEMOGLOBIN 6.2 gm/dL (12.0-15.0)
[2020-08-09 17:16] LABS: ANION GAP 1 mmol/L (7-16); BUN 14 mg/dL (7-18); CALCIUM 9.4 mg/dL (8.5-10.1); CHLORIDE 103 mmol/L (98-107); CO2 36 mmol/L (21-32); CREATININE 1.1 mg/dL (0.6-1.0); GLUCOSE 125 mg/dL (74-106); POTASSIUM 4.3 mmol/L (3.5-5.1); SODIUM 140 mmol/L (136-145)
[2020-08-09 17:24] LABS: PROTIME 10.4 Seconds (9.3-11.4)
[2020-08-09 17:26] LABS: ALBUMIN 3.4 g/dL (3.4-5.0); SGOT 11 U/L (15-37); SGPT 15 U/L (14-59); TOTAL BILIRUBIN 0.1 mg/dL (0.2-1.0); TROPONIN-I <0.06 ng/mL (<0.06)
[2020-08-09 17:52] LABS: ABSOLUTE NEUTROPHILS 7.7 thou/uL (1.4-8.2); ANISOCYTOSIS 1+; HYPOCHROMASIA 1+; MICROCYTES 1+
[2020-08-09 18:57] VITALS: BP 139/51; BP 141/64; BP 149/63; BP 153/80; BP 156/70
[2020-08-09] MEDS ORDERED: CLARITIN10 MG PO (19:27)
[2020-08-09] MEDS ORDERED: LEVEMIR FL100 UNIT/2 SUBQ (19:29)
[2020-08-09] MEDS ORDERED: MELATONIN3 M1 PO (19:30)
[2020-08-09] MEDS ORDERED: MUCINEX1200 MG PO (19:31)
[2020-08-09] MEDS ORDERED: NOVOLOG100 UNIT/M SUBQ (19:32)
[2020-08-09] MEDS ORDERED: NYSTATIN1 EA10 TOP (19:33)
[2020-08-09] MEDS ORDERED: NYSTATIN15 G3 TOP (19:34)
[2020-08-09] MEDS ORDERED: PREDNISONE 5 MG5 M1 PO (19:37)
[2020-08-09] MEDS ORDERED: ZINC50 M2 PO (19:39)
[2020-08-09] MEDS ORDERED: ONDANSETRON HCL4 M2 PO (19:39)
[2020-08-10 03:04] LABS: HEMATOCRIT 26.4 % (37.0-47.0); HEMOGLOBIN 7.7 gm/dL (12.0-15.0)
--- NOTE | 2020-08-10 07:19 | EKG ---
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 : 1940 Requested By: Tangela Munguia Order Number: [id number] MD: Fredi Moralez Measurements Intervals [place] Rate: 86 P: 67 NE: 151 QRS: 59 QRSD: 69 T: 84 QT: 346 QTc: 414 Interpretive Statements Sinus rhythm Nonspecific T abnormalities, diffuse leads Compared to ECG 03/04/2020 13:36:00 T-wave abnormality now present Electronically Signed On 08-10-2020 7:19:10 MOLD SHAKER by Fredi Moralez [email or web address] <ELECTRONICALLY SIGNED> By: Fredi Moralez MD, [facility] 08/10/20 0719 1655 1655 Fredi Moralez MD, FACC /EPI
--- NOTE | 2020-08-10 10:02 | 2DMMODE ---
[facility] [place] [address] 2 D/M-MODE ECHOCARDIOGRAM Name: ABEL RANGEL Room #: 170-11 ADM IN M.R.#: [id number] Admission: 08/09/20 Attend Phys: John Urbina MD Discharge: Date of : 44 Report #: [id number] THIS REPORT FOR: cc: ABEL NARAYANAN Physician not on staff Danish Tillman MD ~ APPROVED REPORT Study performed: 08/10/2020 08:33:46 EXAM: Comprehensive 2D, Doppler, and color-flow Echocardiogram Patient Location: ER Room #: 11 Status: routine BSA: 1.85 HR: 78 bpm BP: 167/83 mmHg Rhythm: NSR Other Information Study Quality: Good Indications Aortic Valve Disease COPD Dyspnea 2D Dimensions RVDd: 36.53 mm IVSd: 10.19 (7-11mm) LVOT Diam: 18.47 (18-24mm) LVDd: 40.66 mm PWd: 9.71 (7-11mm) LVDs: 20.47 (25-40mm) Aortic Root: 22.10 mm IVC: 17.00 mm Volumes Left Atrial Volume (Systole) Single Plane 4CH: 64.74 mL Single Plane 2CH: 50.71 mL LA ESV Index: 33.00 mL/m2 Aortic Valve AoV Peak Hung.: 4.48 m/s AO Peak Gr.: 80.37 mmHg LVOT Max P.01 mmHg AO Mean Gr.: 45.16 mmHg LVOT Mean P.77 mmHg [facility] [place] [address] [place] [address] 2 D/M-MODE ECHOCARDIOGRAM Name: ABEL RANGEL Room #: 170-11 ADM IN M.R.#: [id number] Admission: 08/09/20 Attend Phys: Licha Griffiths Discharge: Date of : 44 Report #: [id number] V2 Mean: 3.16 m/s LVOT Max V: 0.93 m/s AO V2 VTI: 113.83 cm LVOT Mean V: 0.62 m/s SHELBI (VTI): 0.46 cm2 LVOT V1 VTI: 19.49 cm SHELBI Vmax: 0.55 cm2 SV (LVOT): 52.18 mL Mitral Valve E/A Ratio: 0.6 MV Decel. Time: 348.75 ms MV E Max Hung.: 0.84 m/s MV A Hung.: 1.35 m/s MV PHT: 101.14 ms IVRT: 73.82 ms Pulmonary Valve PV Peak Hung.: 1.97 m/s PV Peak Gr.: 15.60 mmHg Pulmonary Vein P Vein S: 0.74 m/s P Vein A: 0.37 m/s P Vein D: 0.44 m/s P Vein A Dur.: 147.6 msec P Vein S/D Ratio: 1.68 Left Ventricle The left ventricle is normal size. There is normal LV segmental wall motion. There is normal left ventricular wall thickness. The left ventricular systolic function is normal. The left ventricular ejection fraction is within the normal range. LVEF is 55-60%. Grade I - abnormal relaxation pattern. Right Ventricle The right ventricle is normal size. The right ventricular systolic function is normal. Atria The left atrium size is normal. The right atrium size is normal. Aortic Valve The aortic valve i stricuspidl in structure. Aortic valve is calcified. No aortic regurgitation is present. Severe aortic stenosis. Mitral Valve The mitral valve is normal in structure. There is mitral annular calcification. Trace mitral regurgitation. No evidence of mitral valve stenosis. [facility] [address] [place] [address] 2 D/M-MODE ECHOCARDIOGRAM Name: ABEL RANGEL Room #: 170-11 ADM IN M.R.#: [id number] Admission: 08/09/20 Attend Phys: Licha Griffiths Discharge: Date of : 44 Report #: [id number] Tricuspid Valve The tricuspid valve is normal in structure. There is no tricuspid valve regurgitation noted. Pulmonic Valve The pulmonary valve is normal in structure. There is no pulmonic valvular regurgitation. Great Vessels The aortic root is normal in size. IVC is normal in size and collapses >50% with inspiration. Pericardium There is no pericardial effusion. <Conclusion> The left ventricle is normal size. LVEF is 55-60%. There is normal left ventricular wall thickness. The aortic valve i stricuspidl in structure. Aortic valve is calcified. No aortic regurgitation is present. Severe aortic stenosis. The mitral valve is normal in structure. There is mitral annular calcification. Trace mitral regurgitation. The pulmonary valve is normal in structure. The aortic root is normal in size. There is no pericardial effusion. <ELECTRONICALLY SIGNED> By: Danish Tillman MD 08/10/20 1002 1002 1002 Danish Tillman MD /INF
[2020-08-10 10:37] LABS: HEMATOCRIT 25.1 % (37.0-47.0); HEMOGLOBIN 7.6 gm/dL (12.0-15.0)
--- NOTE | 2020-08-10 10:51 | NUR ---
79 year old female presented to the ED via EMS complaints of SOA. Per report became SOA the day of ED presentation on 08-09-20 and stated her symptoms were "really bad". The patient has a long history of COPD, but recently found to have a "runny nose" and urination issues. The patient reports she is not in control of her urination. PMHx includes COPD. She denies any CP, cough, fever, sore throat, or headache. Pt denies fever, chills, chest pain, back pain, or N/V/D. Of note found to have a HgB of 6.1 and on 2 liters per NC. The patient has been admitted with Acute Severe Anemia secondary to GI Bleed, Chronic Respiratory Failure, R/O COVID infection (COVID 19 PCR NEGATIVE 08-09-[address] [facility] ED), Severe COPD, CKD stage 3, DM, HTN, Depression/bipolar, Hypothyroidism and chronic back pain. GI has been consulted. Case Management did consult on case on 02-26-2020 as patient was positive for COVID 19 from [facility] along with admission at that time for GI bleed. The patient is assessed to be A&O x4. Daughter is listed as next of kin and point of contact as Carlee Jack at [phone]. Attempted times 2 to reach daughter with intent to review CM role. At present Case Management to follow for anticipated discharge needs back to [facility] once medically stable.
--- NOTE | 2020-08-10 14:22 | NUR ---
REPORT GIVEN TO GI OUTPATIENT INTERVIEWING CLERK, PT GOES FOR SCOPE AT THIS TIME
[2020-08-10 17:07] VITALS: BP 137/74
[2020-08-10 17:11] VITALS: BP 134/74
[2020-08-10 17:32] LABS: HEMATOCRIT 26.5 % (37.0-47.0); HEMOGLOBIN 8.2 gm/dL (12.0-15.0)
[2020-08-10 18:11] LABS: % SATURATION 4 % (20-39); IRON 13 ug/dL (50-170); TIBC 295 ug/dL (250-450)
[2020-08-10 18:13] VITALS: BP 147/71
--- NOTE | 2020-08-10 19:51 | NUR ---
Received pt from the ER, VS stable on a protonix drip. Kept comfortable, placed on telemetry. Endorsed to the night nurse.
[2020-08-10 20:15] VITALS: BP 145/59
--- NOTE | 2020-08-11 03:39 | NUR ---
ASSUMED CARE OF PT AT 1900. PT IS ALERT TO SELF, PLACE, AND SITUATION BUT IS FORGETFUL WITH TIME. ADMISSION IS COMPLETED AND MEDICATIONS GIVEN PER SEP. ORDERS FOLLOWED PRESCRIBED. DENIES ANY C/O PAIN OR DISCOMFORT. VSS. ON 2 LITERS OF NC. NO DARK STOOLS THIS SHIFT. HGB ELEVATED SINCE PREVIOUS LAB DRAW. SLIDING SCALE GIVEN DIRECTED. AT THIS TIME, PT IS LYING IN HER BED AND APPEARS TO BE SLEEPING. FALL PRECAUTIONS IMPLEMENTED, CALL LIGHT IS WITHIN REACH.
[2020-08-11 07:17] VITALS: BP 141/58
[2020-08-11] MEDS ORDERED: LASIX 20 MG TAB20 MG PO (11:04)
--- NOTE | 2020-08-11 14:20 | NUR ---
PT ADMITTED RELATED TO ACUTE GI BLEED, AND ANEMIA. CM REVIEWED CHART AND SPOKE WITH CARE TEAM. CM ATTEMPTED TO MET WITH PT THIS AM BUT SHE WAS EATING BREAKFAST. CM CALLED PT'S DTR AND SHE INDICATED THAT PT RESIDES AT [facility]. 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 PT HAD BEEN USING O2 AT [facility]. PT ON 2L. PT HAD EGD YESTERDAY. PLAN FOR PT TO HAVE COLONOSCOPY TOMORROW. [place] [facility] [place] TO FOLLOW INDICATED WITH DC PLANNING.
[2020-08-11 15:24] VITALS: BP 129/50
--- NOTE | 2020-08-11 15:32 | NUR ---
Assumed pt care at 7am.Pt up in chair in the room without c/o.Assessment completed.Vss.Dr Urbina and Abdias here.Order noted.Pt tolerated meds and diet.Cardiology consult called and pt dc cancelled after seen by gi. Pt will be having colonoscopy tomorrow am.Consent signed by pt and withnessed by this rn.Bowel prep will start this evening.No verbal c/o at present.Fall bundle in place.Will continue to monitor.
[2020-08-11 19:50] VITALS: BP 163/52
--- NOTE | 2020-08-11 21:20 | NUR ---
PT IS REFUSING TO COMPLETE BOWEL PREP. PT STATES "I DIDN'T EVEN WANT TO DO A COLONOSCOPY".
--- NOTE | 2020-08-12 04:05 | NUR ---
ASSUMED CARE OF PT AT 1900HRS. PT AOX3 AND LETS NEEDS BE KNOWN. FALL PRECAUTION IN PLACE PT DOES NOT ALWAYS CALL FALL ASSISTANCE. PT WAS UNABLE TO COMPLETE BOWEL PREP AND ONLY HAD 1 BM THIS SHIFT. GI MACHINE DESIGN ENGINEER NOTIFIED. PT PLACED NPO AT [place]. PT RAN SR ON TELE. PT WAS ABLE TO GET COMFORTABLE AND SLEEP PART OF THE SHIFT. VSS AND NO S/S OF ACUTE DISTRESS. WILL CONTINUE TO MONITOR.
[2020-08-12 07:20] VITALS: BP 134/53
[2020-08-12 08:31] VITALS: BP 134/53
[2020-08-12 10:23] LABS: HEMATOCRIT 25.8 % (37.0-47.0); HEMOGLOBIN 7.9 gm/dL (12.0-15.0)
--- NOTE | 2020-08-12 11:16 | NUR ---
ASSUMED CARE OF PATIENT AFTER REPORT. ASSESSMENT CHARTED. MEDS ADMINSTERED PER EMAR. VSS. PATIENT IS A&OX3-4 WITH SOME CONFUSION AND FORGETFULNESS. PATIENT REMIANS NPO FOR COLONOSCOPY. FABRICATION OPERATOR REPORTED SHE ONLY COMPLETED ABOUT 30% OF HER BOWEL PREP HOWEVER SHE HAD A WATERY BM APPAERING TO BE CLEAR AT APPROX. 0830AM. IT WAS DECIDED TO GO AHEAD AND COMPLETE HER COLONOSCOPY; GI TO COME GET PATIENT. AFTER PROCEDURE, PAT[facility] BE[facility] AWAITING COLONOCOPY AND ORDERS. WILL CONTINUE TO MONITOR PATIENT
--- NOTE | 2020-08-12 14:11 | NUR ---
PATIENT RETURNED TO UNIT AT 1400. DENIES PAIN OR DISTRESS. PATIENT REQUESTED SOMETHING TO EAT AND DRINK AND WAS GIVEN A SANDWHICH AND SPRITE. DISCHARGE ORDERS IN PLACE. AWAITING TRANSPORTATION. FALL PRECAUTIONS IN PLACE; NEAR NURSES STATION. WILL CONTINUE TO MONITOR
[2020-08-12 15:45] VITALS: BP 146/58
--- NOTE | 2020-08-12 16:28 | NUR ---
PT HAD COLONOSCOPY DONE THIS DAY. PT'S DIET WAS ADVANCED AND TOLERATED. CARE TEAM INDCIATED SHE IS MEDICALLY STABLE TO DC HOME BACK [place] [facility] [place]. ORDERS FAXED. CM NOTIFIED PT AND HER DT. [employer] TRANSPORT ARRANGED FOR 301. REPORT TO BE CALLED TO ASK FOR [place]. CASE CLOSED.
--- NOTE | 2020-08-16 17:06 | PATH ---
[facility] [address] [place] [address] PATHOLOGY RPT PROCEDURE Name: ABEL HE Room #: 451-P DIS IN M.R.#: [id number] Admission: 08/09/20 Date of : 44 Discharge: 08/12/20 Report #: [id number] Path Case #: [id number] [facility] Accession Number: [id number] . 01 Material submitted: . cecum - BIOPSY CECAL POLYP . 01 Clinical history: . ANEMIA COLON POLYP . 02 Diagnosis: Polyp, cecal polyp, endoscopic biopsy: - Tubular adenoma. - Negative for high-grade dysplasia. (IUV:pit 08/16/2020) QTP 08/16/2020 1252 Local . 02 Electronically signed: . Maira Howell MD, Pathologist NPI- [id number] . 01 Gross description: . The specimen is received in formalin, labeled "Abel He, biopsy cecal polyp". Received is a segment of pale caraballo soft tissue measuring 0.5 cm in maximum dimensions. The specimen is submitted entirely in cassette A1. (CAA; 08/15/2020) QAC/QAC 08/15/2020 1109 Local . 02 Pathologist provided ICD-10: D12.0 . 02 CPT . 684106 Specimen Comment: A courtesy copy of this report has been sent to [phone] Specimen Comment: Report sent to Performed at: [address], [place] [id number] MD Calixto Herrmann MD Phone: [phone] Performed at: [address] [id number] MD Maira Howell MD Phone: [phone]
== END 2020-08-12 17:00 | DRG 378 ==
LOC: ER 16:29 → 4W 18:05 → EROBS 18:05 → 4W 08-10 17:18
PROVIDERS: Emergency Medicine; Nurse Practitioner; ADMIT Hospitalist; ATTEND Hospitalist
PROC: 30233N1 Transfusion of Nonautologous Red Blood Cells into Peripheral Vein, Percutaneous Approach (ICD-10-PCS; principal; 2020-08-09)
PROC: 0DJ08ZZ Inspection of Upper Intestinal Tract, Via Natural or Artificial Opening Endoscopic (ICD-10-PCS; 2020-08-10)
PROC: 0DBE8ZZ Excision of Large Intestine, Via Natural or Artificial Opening Endoscopic (ICD-10-PCS; 2020-08-12)
PROC: 5A0935A Assistance with Respiratory Ventilation, Less than 24 Consecutive Hours, High Flow/Velocity Cannula (ICD-10-PCS; 2020-08-12)
DX: K57.31 Diverticulosis of large intestine without perforation or abscess with bleeding (principal); D62 Acute posthemorrhagic anemia; J96.11 Chronic respiratory failure with hypoxia; J44.1 Chronic obstructive pulmonary disease with (acute) exacerbation; E03.9 Hypothyroidism, unspecified; F31.9 Bipolar disorder, unspecified; F03.90 Unspecified dementia, unspecified severity, without behavioral disturbance, psychotic disturbance, mood disturbance, and anxiety; N18.30 Chronic kidney disease, stage 3 unspecified; E11.22 Type 2 diabetes mellitus with diabetic chronic kidney disease; I12.9 Hypertensive chronic kidney disease with stage 1 through stage 4 chronic kidney disease, or unspecified chronic kidney disease; G89.29 Other chronic pain; M54.9 Dorsalgia, unspecified; K21.9 Gastro-esophageal reflux disease without esophagitis; E78.5 Hyperlipidemia, unspecified; I35.0 Nonrheumatic aortic (valve) stenosis; D47.3 Essential (hemorrhagic) thrombocythemia; G47.00 Insomnia, unspecified; K44.9 Diaphragmatic hernia without obstruction or gangrene; K63.5 Polyp of colon; K64.8 Other hemorrhoids; Z20.822 Contact with and (suspected) exposure to COVID-19; Z87.891 Personal history of nicotine dependence; Z88.1 Allergy status to other antibiotic agents; Z88.8 Allergy status to other drugs, medicaments and biological substances; Z82.49 Family history of ischemic heart disease and other diseases of the circulatory system; Z90.710 Acquired absence of both cervix and uterus; Z99.81 Dependence on supplemental oxygen; Z28.21 Immunization not carried out because of patient refusal; Z79.899 Other long term (current) drug therapy
CPT/HCPCS: 10045; 62110; 62900; 70005

== ENCOUNTER 2021-04-30 15:00 | Emergency (ER) | payer OTHER ==
[~2021-04-30] VITALS: Ht 162.6 cm; Wt 84.4 kg
[~2021-04-30 15:00] MED LIST changes: +CLARITIN10 MG PO; +LASIX 20 MG TAB20 MG PO; +LEVEMIR FL100 UNIT/2 SUBQ; +MUCINEX1200 MG PO; +NOVOLOG100 UNIT/M SUBQ; +NYSTATIN1 EA10 TOP; +NYSTATIN15 G3 TOP; +ZINC50 M2 PO
[2021-04-30 15:19] LABS: ABSOLUTE NEUTROPHILS 7.6 thou/uL (1.4-8.2); BASOPHILS 1.3 % (0.0-2.0); EOSINOPHILS 1.7 % (0.0-3.0); HEMATOCRIT 34.3 % (37.0-47.0); HEMOGLOBIN 11.6 gm/dL (12.0-15.0); LYMPHOCYTES 12.3 % (24.0-44.0); MCH 28.5 pg (26.0-34.0); MCHC 33.7 g/dL (28.0-37.0); MCV 84.4 fL (80.0-100.0); MONOCYTES 9.5 % (1.0-8.0); PLATELET COUNT 471 thou/uL (150-400); POLYS 75.2 % (36.0-66.0); RBC 4.07 mil/uL (4.20-5.00); WBC 10.1 thou/uL (4.0-11.0)
[2021-04-30 15:23] LABS: ANION GAP 3 mmol/L (7-16); BUN 14 mg/dL (7-18); CALCIUM 8.6 mg/dL (8.5-10.1); CHLORIDE 103 mmol/L (98-107); CO2 33 mmol/L (21-32); GLUCOSE 168 mg/dL (74-106); POTASSIUM 4.9 mmol/L (3.5-5.1); SODIUM 139 mmol/L (136-145)
[2021-04-30 15:33] LABS: ALBUMIN 3.3 g/dL (3.4-5.0); SGOT 23 U/L (15-37); SGPT 19 U/L (14-59); TOTAL BILIRUBIN < 0.1 mg/dL (0.2-1.0); TOTAL PROTEIN 7.4 g/dL (6.4-8.2)
[2021-04-30] MEDS ORDERED: PREDNISONE 20 M20 MG PO (16:57)
[2021-04-30] MEDS ORDERED: PROAIR HFA8.5 GM INH (16:57)
[2021-04-30] MEDS ORDERED: ALBUTEROL2.5 MG/31 INH (16:57)
[2021-04-30] MEDS ORDERED: DOXYCYCLINE 10100 MG PO (16:57)
[2021-04-30 18:01] VITALS: BP 134/81
--- NOTE | 2021-05-01 15:37 | EKG ---
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: CRYSTAL GARNER : 1940 Requested By: Yo Jimenez Order Number: [id number] MD: Fredi Moralez Measurements Intervals [place] Rate: 90 P: 80 [place]: 152 QRS: 78 QRSD: 85 T: 78 QT: 367 QTc: 449 Interpretive Statements Sinus rhythm Probable left atrial enlargement Baseline wander in lead(s) V3,V5,V6 Compared to ECG 08/09/2020 16:55:06 T-wave abnormality no longer present Electronically Signed On 05-01-2021 15:36:54 CDT by Fredi Moralez [email or web address] <ELECTRONICALLY SIGNED> By: Fredi Moralez MD, [facility] 05/01/21 1536 1509 1509 Fredi Moralez MD, FAC /EPI
== END 2021-04-30 18:03 | disposition home or self-care (01) ==
LOC: ER 15:00
PROVIDERS: Emergency Medicine
DX: J44.1 Chronic obstructive pulmonary disease with (acute) exacerbation (principal); Z20.822 Contact with and (suspected) exposure to COVID-19; R06.02 Shortness of breath; J18.9 Pneumonia, unspecified organism; J45.909 Unspecified asthma, uncomplicated; Z90.710 Acquired absence of both cervix and uterus; Z90.49 Acquired absence of other specified parts of digestive tract; Z79.51 Long term (current) use of inhaled steroids; Z79.899 Other long term (current) drug therapy; Z79.4 Long term (current) use of insulin; Z79.891 Long term (current) use of opiate analgesic; Z79.1 Long term (current) use of non-steroidal anti-inflammatories (NSAID); Z88.6 Allergy status to analgesic agent; Z88.3 Allergy status to other anti-infective agents; Z88.5 Allergy status to narcotic agent; Z88.7 Allergy status to serum and vaccine; Z88.8 Allergy status to other drugs, medicaments and biological substances; Z87.891 Personal history of nicotine dependence

== ENCOUNTER 2021-05-08 19:23 | Inpatient (IN) | payer OTHER ==
[~2021-05-08] VITALS: Ht 160 cm; Wt 89.1 kg
[~2021-05-08 19:23] MED LIST changes: +ALBUTEROL2.5 MG/31 INH; +DOXYCYCLINE 10100 MG PO; +PROAIR HFA8.5 GM INH
[2021-05-08 19:34] VITALS: BP 150/67
[2021-05-08 20:00] LABS: ABSOLUTE NEUTROPHILS 10.3 thou/uL (1.4-8.2); BASOPHILS 0.6 % (0.0-2.0); EOSINOPHILS 0.2 % (0.0-3.0); HEMATOCRIT 35.6 % (37.0-47.0); HEMOGLOBIN 11.5 gm/dL (12.0-15.0); LYMPHOCYTES 8.2 % (24.0-44.0); MCH 27.8 pg (26.0-34.0); MCHC 32.4 g/dL (28.0-37.0); MCV 85.7 fL (80.0-100.0); PLATELET COUNT 385 thou/uL (150-400); RBC 4.15 mil/uL (4.20-5.00); RDW 14.9 % (10.5-14.5); WBC 11.4 thou/uL (4.0-11.0)
[2021-05-08 20:03] LABS: CALCIUM 8.7 mg/dL (8.5-10.1); CREATININE 1.1 mg/dL (0.6-1.0); POTASSIUM 5.3 mmol/L (3.5-5.1)
[2021-05-08 23:25] VITALS: BP 145/71
[2021-05-08 23:26] VITALS: BP 145/71
[2021-05-08 23:58] VITALS: BP 138/62
[2021-05-09 04:06] LABS: CALCIUM 8.6 mg/dL (8.5-10.1); CREATININE 0.9 mg/dL (0.6-1.0); MAGNESIUM 1.7 mg/dL (1.8-2.4); POTASSIUM 4.8 mmol/L (3.5-5.1)
[2021-05-09 04:30] VITALS: BP 125/61
--- NOTE | 2021-05-09 04:38 | NUR ---
PT ADMITTED TO THE UNIT WITH C/O SOA AND DIAGNOSED WITH PNEUMONIA.PT IS A/O X4.PT IS UP WITH X1 ASSIST.PT ON ON 2L OF O2 VIA NC AND USES O2 AT FACILITY [place]IV ACCESS ON LT AC WITH NS .WILL CONTINUE TO MONITOR PER POC
[2021-05-09 04:56] LABS: HEMATOCRIT 32.2 % (37.0-47.0); HEMOGLOBIN 10.4 gm/dL (12.0-15.0); MCH 27.4 pg (26.0-34.0); MCHC 32.2 g/dL (28.0-37.0); MCV 85.3 fL (80.0-100.0); RBC 3.77 mil/uL (4.20-5.00); RDW 14.5 % (10.5-14.5); WBC 9.6 thou/uL (4.0-11.0)
[2021-05-09 07:44] VITALS: BP 134/62
--- NOTE | 2021-05-09 14:41 | NUR ---
PT ADMITTED RELATED TO PNEUMONIA. CM REVIEWED CHART AND SPOKE WITH CARE TEAM. CM MET WITH PT AT BEDSIDE THIS DAY. PT APPEARED TO BE A&O X4. CM ROLE INTRODUCED. PT INDICATED SHE RESIDES IN LTC A PRIVATE ROOM AT [facility] AND HAS LIVES THERE FOR 4YRS. PT INIDCATED SHE IS ONE OF TWO PT'S WHO WALK THERE. 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 PT'S DTR JAY STERLING IS HER CONTACT . PT INDICATED SHE DOESN'T SPEAK WITH HER MUCH. PT INDICATED SHE WAS INTERESTED IN POSSIBKLY GOING TO A FACILITY IN [place] UPON DC. CM INDICATED THAT CM CAN PROVIDE PT WITH A LIST TO REVIEW BUT THAT CM MAY NOT BE ABLE TO GET PT TO ANOTHER FACILITY UPON DC FROM HOSPITAL. PT EXPRESSED UNDERSTANDING.
--- NOTE | 2021-05-09 14:47 | NUR ---
ASSUMED PT CARE THIS AM. PT A&OX4, ABLE TO MAKE NEEDS KNOWN. PATIENT REPORTING NO PAIN. PATIENT REMAINS CONTINENT, AND IS UP WITH ASSIST TO THE BEDSIDE COMMODE. PATIENT IV REMAINS PATENT, FLUIDS INFUSING WITHOUT ISSUE. MEDICATIONS TAKEN WITHOUT ISSUE. PATIENT ON 2 LITERS OF OXYGEN PER NC. FALL PRECAUTIONS ARE IN PLACE, CALL LIGHT WITHIN REACH.
[2021-05-09 15:22] VITALS: BP 126/45
[2021-05-09 19:21] VITALS: BP 127/42
--- NOTE | 2021-05-10 03:31 | NUR ---
Assumed pt care at 1900. A/OX4,VSS. Denies pain on assessment. Does have a non productive cough,SOA,on nebs and Mucinex,oxygen @2L/NC. Up with AX1 RW/GB to BSC. Continent of B&B. Fall precautions in place,calls approp for help. NSR on telemetry,resting w/o distress will continue to monitor pt.
[2021-05-10 04:56] VITALS: BP 138/63
[2021-05-10 07:00] VITALS: BP 142/62
[2021-05-10 12:00] VITALS: BP 117/85
--- NOTE | 2021-05-10 15:38 | NUR ---
ASSUMED CARE AT SHIFT CHANGE. PT A/O X 4, FORGETFUL AT TIMES. UP X 1 ASSIST WITH GB/WALKER TO BATHROOM. NEEDS REDIRECTION AT TIMES. NECK PAIN THIS AM, RELIEVED WITH TYLENOL AND REPOSITIONING. BC(+)X1, DR AWARE AND STATES IT IS PROBABLE THAT IT IS A CONTAMINATE. NO NEW ORDERS RECEIVED. PT HAS CONGESTION AND MEDICAL TRANSCRIPTION SUPERVISOR COUGH. SOME SOA WITH EXERTION. IS ON 2L NC WHICH IS HER BASELINE. POSSIBLE DC TOMMORROW BACK TO FACILITY. WILL CONT TO MONITOR AND FOLLOW POC.
[2021-05-10 17:00] VITALS: BP 124/54
[2021-05-10 19:40] VITALS: BP 143/52
[2021-05-11 00:26] VITALS: BP 149/45
--- NOTE | 2021-05-11 04:33 | NUR ---
Assumed pt care at 1900. A/OX4,fussy at times. VSS. Denies pain on assessment. Up with AX1,RW/GB. Does have dyspnea on exertion,oxygen on @ 2L/NC per baseline. Incontinent of bladder at times. NSR on telemetry. Fall precautions in place,calls approp for help. Will continue to monitro pt.
[2021-05-11 04:38] VITALS: BP 156/54
[2021-05-11 07:12] VITALS: BP 159/49
[2021-05-11] MEDS ORDERED: AUGMENTIN 875-1 EACH PO (08:59)
--- NOTE | 2021-05-11 14:23 | NUR ---
CARE TEAM INDICATED THAT PT IS MEDICALLY STABLE TO DISCA[place] [facility] CM FAXED ORDERS AND SPOKE WITH ADMISSIONS. THEY HAVE ARRANGED [facility] TRANSPORT WITH 2L O2 AROUND 1400. CHART COPY MADE. NURSE CALLED REPORT. PT IS AWARE AND AGREEABLE. NO OTHER CM INTERVENTION INDICATED. CASE CLOSED.
--- NOTE | 2021-05-12 14:15 | NUR ---
LAB CALLED WITH POSITIVE BC. PER LAB POSITIVE ON 2ND BOTTLE, ANEROBIC, GRAM POS COCCI. ERP UPDATED AND REVIEWS CHART. UPDATES THIS RN THAT HE BELIEVES IT TO BE A CONTAMINENT AND STATES THE PT IS ALREADY ON AUGMENTIN
== END 2021-05-11 15:39 | DRG 871 ==
LOC: ER 19:23 → EROBS 20:53 → 4W 20:53 → ER 23:39 → 4W 23:40
PROVIDERS: Emergency Medicine; Nurse Practitioner Family; ADMIT Hospitalist; ATTEND Hospitalist
DX: A41.9 Sepsis, unspecified organism (principal); J18.9 Pneumonia, unspecified organism; J96.21 Acute and chronic respiratory failure with hypoxia; J44.0 Chronic obstructive pulmonary disease with (acute) lower respiratory infection; I10 Essential (primary) hypertension; E87.5 Hyperkalemia; E11.65 Type 2 diabetes mellitus with hyperglycemia; Z20.822 Contact with and (suspected) exposure to COVID-19; F31.9 Bipolar disorder, unspecified; F03.90 Unspecified dementia, unspecified severity, without behavioral disturbance, psychotic disturbance, mood disturbance, and anxiety; E03.9 Hypothyroidism, unspecified; E78.5 Hyperlipidemia, unspecified; F41.9 Anxiety disorder, unspecified; G89.29 Other chronic pain; J45.909 Unspecified asthma, uncomplicated; D50.9 Iron deficiency anemia, unspecified; Z79.899 Other long term (current) drug therapy; Z88.8 Allergy status to other drugs, medicaments and biological substances; Z90.49 Acquired absence of other specified parts of digestive tract; Z90.710 Acquired absence of both cervix and uterus; Z87.891 Personal history of nicotine dependence; Z23 Encounter for immunization
CPT/HCPCS: 10045

== ENCOUNTER 2021-07-29 20:15 | Emergency (ER) | payer OTHER ==
[~2021-07-29] VITALS: Ht 162.6 cm; Wt 85.7 kg
[~2021-07-29 20:15] MED LIST changes: +AUGMENTIN 875-1 EACH PO
[2021-07-29 20:17] VITALS: BP 137/89
[2021-07-29] MEDS ORDERED: TESSALON PERLE100 MG PO (21:31)
== END 2021-07-29 22:52 | disposition home or self-care (01) ==
LOC: ER 20:15
DX: U07.1 COVID-19 (principal); R05.9 Cough, unspecified; J44.9 Chronic obstructive pulmonary disease, unspecified; J45.909 Unspecified asthma, uncomplicated; F02.80 Dementia in other diseases classified elsewhere, unspecified severity, without behavioral disturbance, psychotic disturbance, mood disturbance, and anxiety; I10 Essential (primary) hypertension; E78.5 Hyperlipidemia, unspecified; F31.9 Bipolar disorder, unspecified; E11.9 Type 2 diabetes mellitus without complications; F41.9 Anxiety disorder, unspecified; Z90.710 Acquired absence of both cervix and uterus; Z90.49 Acquired absence of other specified parts of digestive tract; Z79.51 Long term (current) use of inhaled steroids; Z79.899 Other long term (current) drug therapy; Z79.4 Long term (current) use of insulin; Z79.891 Long term (current) use of opiate analgesic; Z88.5 Allergy status to narcotic agent; Z88.6 Allergy status to analgesic agent; Z87.891 Personal history of nicotine dependence